=== PATIENT | male | born 1945 | race Caucasian/White ===

== ENCOUNTER 2024-06-14 14:15 | Outpatient (CLI) | payer MEDICARE | END 2024-06-14 14:16 | disposition home or self-care (01) | LOC: SCSMRI 14:15 | PROVIDERS: ATTEND Psychiatry & Neurology Neurology | DX: R41.3 Other amnesia (principal); I67.82 Cerebral ischemia; G31.89 Other specified degenerative diseases of nervous system | CPT/HCPCS: 70553; 76376 ==

== ENCOUNTER 2025-01-06 22:17 | Emergency (ER) | payer MEDICARE, OTHER ==
[2025-01-06 22:48] LABS: #Basophils Less than 0.03 10x3/uL (0.0-0.2); #Eosinophils Less than 0.03 10x3/uL (0.0-0.7); #Monocytes 1.37 10x3/uL (0.11-0.59); #Neutrophils 12.72 10x3/uL (1.40-6.50); %Basophils 0.1 % (0.0-1.0); %Eosinophils 0.0 % (0.0-10.0); %Lymphocytes 3.9 % (21.0-51.0); %Monocytes 9.3 % (0.0-10.0); %Neutrophils 86.2 % (42.0-75.0); Hematocrit 37.6 % (42.0-52.0); Hemoglobin 12.1 g/dL (14.0-18.0); Mean Corpuscular Hemoglobin 31.8 pg (27.0-31.0); Mean Corpuscular Volume 98.7 fL (78.0-98.0); Platelet Count 145 10x3/uL (130-400); Red Blood Cell (RBC) Count 3.81 mill/uL (4.70-6.10); White Blood Cell (WBC) Count 14.77 10x3/uL (4.8-10.8)
[2025-01-06 23:28] LABS: ALT (SGPT) 34 U/L (Less than 45); AST (SGOT) 25 U/L (11-34); Albumin 3.0 g/dL (3.1-4.5); Alkaline Phosphatase 66 U/L (40-110); Anion Gap 13 mmol/L (10-20); BUN (Urea Nitrogen) 23 mg/dL (8.4-25.7); Bilirubin, Total 0.4 mg/dL (0.3-1.2); Calc. Creatinine Clearance 0 mL/min (70-130); Calcium 7.7 mg/dL (7.8-10.44); Carbon Dioxide 22 mmol/L (23-31); Chloride 115 mmol/L (98-107); Globulin 2.3 g/dL (2.4-3.5); Glucose 118 mg/dL (83-110); Potassium 3.6 mmol/L (3.5-5.1); Sodium 146 mmol/L (136-145)
[2025-01-07] MEDS ORDERED: cefTRIAXone (ROCEPHIN) 2 GM VIAL ONE (00:10)
[2025-01-07 01:24] LABS: Bacteria/HPF None Seen HPF (None Seen); CAUTI Indications for Culture Alt mental st,lethar; Glucose, Urine (Dipstick) Normal (Negative); Leukocyte Negative Leu/uL (Negative); Protein, Urine (Dipstick) Negative (Neg-Trace); RBC/HPF None Seen HPF (0-3); Specific Gravity, Urine 1.030 (1.002-1.036); WBC/HPF 0-3 HPF (0-3)
[2025-01-07 01:25] LABS: Urine Culture Reflex No No
== END 2025-01-07 07:16 | disposition home or self-care (01) ==
LOC: ERS 22:17
DX: E86.0 Dehydration (principal); R41.82 Altered mental status, unspecified; R29.702 NIHSS score 2; F17.290 Nicotine dependence, other tobacco product, uncomplicated; Z79.899 Other long term (current) drug therapy
CPT/HCPCS: 70450; 71045; 80053; 81001; 83605; 84484; 85025; 87040; 93005; J0696; 51701; 96374